=== PATIENT | male | born 1945 | race Caucasian/White ===

== ENCOUNTER → 2019-04-03 | Day surgery (SDC) | payer MEDICARE, BC ==
[~2019-04-03] MED LIST: ATOR40TA PO; CEPH500T PO; CLOP75TA PO; DILT120C99 PO; FEXO180T16 PO; FISH1CAP PO; FLUT16SP NS; GLUC15006 PO; IV RINGERS,LACTATED 1000ML 1,000 ML IV SCH; LIDOCAINE 2% PF 5 ML VIAL. ONE; NITR0.4T24 SL; OCUVITE SOFTGE1 EACH PO; OLME1TAB21 PO; PROPOFOL 20 ML IV ONE; TERB250T11 PO; VALS1TAB18 PO
[2019-04-03 13:30] VITALS: BP 125/60
--- NOTE | 2019-04-04 15:07 | PATHOLOGY ---
[facility] Accession Number: [id number] . 01 Material submitted: . colon - DESCENDING COLON POLYP BX. Modifiers: descending . 01 Clinical history: . Positive Hemoccult . 02 Diagnosis: Colon biopsies, descending colon polyp: - Tubular adenoma. LBQ 04/04/2019 1154 Local . 02 Comment: There is no high grade dysplasia or evidence of malignancy. (JPM/db; 04/04/2019) . 02 Electronically signed: . Thad John MD, Pathologist NPI- [id number] . 01 Gross description: . Received in formalin labeled "Nuyara, Rodney, descending colon polyp," and additionally labeled on the requisition as "BX," are 2 segments of cordoba soft tissue measuring 0.9 x 0.3 x 0.2 cm in aggregate dimensions and ranging from 0.4 to 0.5 cm in maximum dimension. The specimen is submitted entirely in cassette A1. (TSD; 04/03/2019) TOB/TOB 04/03/20198 Local . 02 Pathologist provided ICD-10: D12.4 . 02 CPT . 160284 Specimen Comment: A courtesy copy of this report has been sent to [phone], [phone] Specimen Comment: [id number] Specimen Comment: Report sent to / DR KHALIL Performed at: 01 [facility] [address] [facility] [address], [place] [id number] MD Abdullahi Peralta MD Phone: [phone] Performed at: 02 [facility] [address] [place], [place] [id number] MD Thad John MD Phone: [phone]
== END ==
LOC: SURG 11:13
PROVIDERS: ATTEND Internal Medicine Gastroenterology
DX: D12.4 Benign neoplasm of descending colon (principal); K57.30 Diverticulosis of large intestine without perforation or abscess without bleeding; K64.0 First degree hemorrhoids; I10 Essential (primary) hypertension; J45.909 Unspecified asthma, uncomplicated; K44.9 Diaphragmatic hernia without obstruction or gangrene; E78.00 Pure hypercholesterolemia, unspecified; F15.90 Other stimulant use, unspecified, uncomplicated; F41.9 Anxiety disorder, unspecified; Z86.010 Personal history of colon polyps; Z72.89 Other problems related to lifestyle; Z88.3 Allergy status to other anti-infective agents; Z88.8 Allergy status to other drugs, medicaments and biological substances; Z87.891 Personal history of nicotine dependence
CPT/HCPCS: 45380; 88305; J2001; J2704